=== PATIENT | female | born 1980 | race Hispanic/Latino ===

== ENCOUNTER 2023-02-08 10:43 | Outpatient (RCR) | payer BC ==
[~2023-02-08 10:43] MED LIST: METOPROLOL TARTRATE INJ 1 MG/ML VIAL ONE
== END 2023-03-01 ==
LOC: PT 10:43
PROVIDERS: ATTEND Student in an Organized Health Care Education/Training Program
DX: M51.86 Other intervertebral disc disorders, lumbar region (principal); F41.9 Anxiety disorder, unspecified; Z82.49 Family history of ischemic heart disease and other diseases of the circulatory system; Z83.3 Family history of diabetes mellitus